=== PATIENT | female | born 1960 | race Caucasian/White ===

== ENCOUNTER 2018-08-13 11:12 | Day surgery (SDC) | payer OTHER ==
[~2018-08-13] VITALS: Ht 157.5 cm; Wt 59.2 kg
[~2018-08-13 11:12] MED LIST: ALPR2TAB5 PO; BUPR-86 PO; HYDR1TAB16 PO; LEVO88TA2 PO
[2018-08-13 11:44] VITALS: BP 126/84
[2018-08-13] MEDS ORDERED: LACTATED RINGERS 1,000 ML IV SCH (12:11)
[2018-08-13] MEDS ORDERED: FENTANYL PF 250 MCG/5ML ONE (12:33)
[2018-08-13] MEDS ORDERED: MIDAZOLAM 1 MG/ML, 2ML ONE (12:33)
[2018-08-13] MEDS ORDERED: BUPIVACAINE/PF-EPI 0.5% 1:200K ONE (12:47)
[2018-08-13] MEDS ORDERED: ONDANSETRON 2MG/ML, 2ML ONE (13:06)
[2018-08-13] MEDS ORDERED: PROPOFOL 10 MG/ML, 20ML ONE (13:06)
[2018-08-13] MEDS ORDERED: DEXAMETHASONE 4 MG/ML, 1ML ONE (13:06)
[2018-08-13] MEDS ORDERED: OXYcodone 5 MG/5 ML ORAL.SOL UDC PO PRN (13:30)
[2018-08-13] MEDS ORDERED: DIAZEPAM 5 MG/ML, 2ML IVPush PRN (13:30)
[2018-08-13] MEDS ORDERED: hydrALAzine 20 MG/ML, 1ML IV PRN (13:30)
[2018-08-13] MEDS ORDERED: FENTANYL PF 100 MCG/2ML IV PRN (13:30)
[2018-08-13] MEDS ORDERED: KETOROLAC 30 MG/1 ML IV PRN (13:30)
[2018-08-13] MEDS ORDERED: ACETAMINOPHEN 325 MG TABLET PO PRN (13:30)
[2018-08-13] MEDS ORDERED: PROMETHAZINE 25 MG/ML, 1ML IV PRN (13:30)
[2018-08-13] MEDS ORDERED: ALBUTEROL SULFATE 2.5 MG/3 ML NPPB PRN (13:30)
[2018-08-13] MEDS ORDERED: LABETALOL 5MG/ML, 20ML IV PRN (13:30)
[2018-08-13] MEDS ORDERED: HYDROmorphone 2 MG/ML, 1ML IVPush PRN (13:30)
[2018-08-13] MEDS ORDERED: MEPERIDINE/PF 25MG/0.5ML IVPush PRN (13:30)
[2018-08-13] MEDS ORDERED: ACETAMINOPHEN 650 MG/20.3 ML UDC ONE (15:17)
[2018-08-13] MEDS ORDERED: OXYcodone 5 MG/5 ML ORAL.SOL UDC ONE (15:18)
== END 2018-08-13 16:50 | disposition home or self-care (01) ==
LOC: OUT 11:12
PROVIDERS: ATTEND Podiatrist Foot & Ankle Surgery
DX: G57.52 Tarsal tunnel syndrome, left lower limb (principal); M25.872 Other specified joint disorders, left ankle and foot; M24.072 Loose body in left ankle; M24.672 Ankylosis, left ankle
CPT/HCPCS: 28035; 29894; 29898; 64445; 64447; J1100; J2250; J2405; J2704; J3010; J7120